=== PATIENT | male | born 1945 | race Caucasian/White ===

== ENCOUNTER 2017-12-12 16:58 | Emergency (ER) | payer MEDICARE ==
[2017-12-12] MEDS: KETOROLAC 60 MG/2 ML INJ. IM (18:48)
== END 2017-12-12 18:57 | disposition home or self-care (01) ==
LOC: ER 16:58
DX: S43.101A Unspecified dislocation of right acromioclavicular joint, initial encounter (principal); I10 Essential (primary) hypertension; E78.00 Pure hypercholesterolemia, unspecified; W20.8XXA Other cause of strike by thrown, projected or falling object, initial encounter; Y93.89 Activity, other specified; Y99.8 Other external cause status; Y92.89 Other specified places as the place of occurrence of the external cause
CPT/HCPCS: 73030; 96372; 99284-25; J1885